=== PATIENT | male | born 1955 | race Caucasian/White ===

== ENCOUNTER → 2022-12-11 10:26 | Outpatient (CLI) | payer OTHER, SELFPAY ==
--- NOTE | 2022-12-11 | DI.RAD.S_ITS ---
PROCEDURE: XR KNEE RT 3V INDICATIONS: KNEE PAIN TECHNIQUE: 3 views of the knee were acquired. COMPARISON: [facility], CR, XR KNEE LT 3V, 12/11/2022, 10:50. FINDINGS: No acute fracture or dislocation identified. Severe medial compartment narrowing, mild patellofemoral compartment narrowing, tricompartmental spurring present. Chondrocalcinosis is present. Small joint effusion. Serpiginous sclerosis imaged distal femur and proximal tibia. IMPRESSION: 1. No acute fracture or dislocation identified. 2. Severe degenerative changes of the knee. 3. Nonspecific chondrocalcinosis present. 4. Nonspecific joint effusion present. 5. Sclerosis at the imaged femur proximal tibia could indicate prior bone infarct. Dictated by: Ovi Larry M.D. on 12/11/2022 at 15:40 Approved by: Ovi Larry M.D. on 12/11/2022 at 15:42
--- NOTE | 2022-12-11 | DI.RAD.S_ITS ---
PROCEDURE: XR KNEE LT 3V INDICATIONS: KNEE PAIN TECHNIQUE: 3 views of the knee were acquired. COMPARISON: [facility], CR, XR KNEE RT 3V, 12/11/2022, 10:50. FINDINGS: No acute fracture or dislocation identified. Severe medial compartment joint space narrowing, mild patellofemoral compartment narrowing, tricompartmental spurring. Serpiginous sclerosis present within the imaged distal femur and proximal tibia. No definite or substantial effusion. Chondrocalcinosis is present. IMPRESSION: 1. No acute fracture dislocation identified. 2. Severe degenerative changes of the knee, worst at the medial compartment. 3. Chondrocalcinosis is present, a nonspecific finding that can be seen in the setting of etiologies such as CPPD or osteoarthritis. 4. Serpiginous sclerosis at the imaged femur and tibia could indicate remote bone infarct. Dictated by: Ovi Larry M.D. on 12/11/2022 at 15:34 Approved by: Ovi Larry M.D. on 12/11/2022 at 15:40
== END ==
PROVIDERS: Referring Provider Registered Nurse; Visit Provider Registered Nurse
DX: M11.262 Other chondrocalcinosis, left knee (principal); M11.261 Other chondrocalcinosis, right knee; M25.561 Pain in right knee; M25.562 Pain in left knee; M25.461 Effusion, right knee
CPT/HCPCS: 73562